=== PATIENT | female | born 1990 | race Caucasian/White ===

== ENCOUNTER 2018-01-18 12:40 | Emergency (ER) | payer SELFPAY ==
[~2018-01-18] VITALS: Ht 160 cm; Wt 99.8 kg
[2018-01-18 13:10] VITALS: Ht 160 cm; Wt 99.8 kg
[2018-01-18 15:23] LABS: CALCIUM 8.9 mg/dL (8.5-10.1); CARBON DIOXIDE 28.6 mmol/L (21-32); CHLORIDE SERUM 104 mmol/L (98-107); GLUCOSE SERUM 117 mg/dL (74-106); POTASSIUM SERUM 3.9 mmol/L (3.5-5.1); SODIUM SERUM 141 mmol/L (136-145)
[2018-01-18 15:32] LABS: BASOPHIL % 0.2 % (0-2); PLATELET COUNT 416 x10^3mcL (130-400); RED CELL DISTRIBUTION WIDTH 14.6 % (11.5-14.5)
[2018-01-18 15:35] LABS: UA SPECIFIC GRAVITY 1.015 (1.005-1.035); microscopic required? YES; urine erythrocyte 3+ (NEGATIVE)
[2018-01-18 15:36] LABS: ALBUMIN 3.9 g/dL (3.4-5.0); ALKALINE PHOSPHATASE 111 U/L (46-116); ALT/SGPT 102 U/L (14-59); AST/SGOT 117 U/L (15-37); BILIRUBIN TOTAL 0.5 mg/dL (0.20-1.00); LIPASE 275 IU/L (73-393); TOTAL PROTEIN, SERUM 8.2 g/dL (6.4-8.2)
[2018-01-18 15:40] LABS: HDL CHOLESTEROL 27 mg/dL (40-60)
[2018-01-18 15:44] LABS: T3 TOTAL 1.3 ng/mL
[2018-01-18 15:44] LABS: AMPHETAMINE QUAL UR NONE DETECTED (See below)
[2018-01-18 16:04] LABS: FREE T4 1.18 ng/dL (0.76-1.46); FREE THYROXINE INDEX 3.4 ug/dL (1.4-4.5); T4(THYROXINE) 9.9 ug/dL (4.7-13.3)
[2018-01-18 16:28] LABS: CREATININE SERUM 0.7 mg/dL (0.6-1.0); GFR1 > 60 mL/min
[2018-01-18 16:33] LABS: CHOLESTEROL 157 mg/dL (<200); CHOLESTEROL/HDL RATIO 5.8; TRIGLYCERIDES 117 mg/dL (<150)
[2018-01-18 20:50] LABS: MAGNESIUM 2.4 mg/dL (1.8-2.4); PHOSPHOROUS 2.6 mg/dL (2.5-4.9)
[2018-01-19 06:24] LABS: BASOPHIL % 1.1 % (0-2); PLATELET COUNT 394 x10^3mcL (130-400)
[2018-01-19 06:39] LABS: CALCIUM 8.1 mg/dL (8.5-10.1); CHLORIDE SERUM 105 mmol/L (98-107); GLUCOSE SERUM 101 mg/dL (74-106); MAGNESIUM 2.5 mg/dL (1.8-2.4); PHOSPHOROUS 2.7 mg/dL (2.5-4.9); POTASSIUM SERUM 4.2 mmol/L (3.5-5.1); SODIUM SERUM 139 mmol/L (136-145)
[2018-01-19 06:50] LABS: CREATININE SERUM 0.5 mg/dL (0.6-1.0); GFR1 > 60 mL/min
[2018-01-19 06:56] LABS: RED CELL DISTRIBUTION WIDTH 14.7 % (11.5-14.5)
[2018-01-19 12:07] VITALS: BP 121/74
== END 2018-01-19 12:07 | disposition home or self-care (01) ==
LOC: ED 12:40
PROVIDERS: Family Medicine; Specialist
DX: R07.89 Other chest pain (principal); M25.512 Pain in left shoulder; M79.605 Pain in left leg; N39.0 Urinary tract infection, site not specified
CPT/HCPCS: 83880; 84439; J0696; J1885; J2270; J2405; J3010; J7030; Q0092; Q9967